=== PATIENT | male | born 1970 | race Caucasian/White ===

== ENCOUNTER → 2017-06-20 | Outpatient (CLI) | payer BC | END | disposition home or self-care (01) | LOC: LAB 10:05 → LAB SHORT 10:05 | PROVIDERS: Internal Medicine Nephrology | DX: N18.2 Chronic kidney disease, stage 2 (mild) (principal); D63.1 Anemia in chronic kidney disease; N25.81 Secondary hyperparathyroidism of renal origin; E55.0 Rickets, active; E78.00 Pure hypercholesterolemia, unspecified; R94.8 Abnormal results of function studies of other organs and systems; R76.9 Abnormal immunological finding in serum, unspecified | CPT/HCPCS: 81050; 82043; 84156 ==

== ENCOUNTER 2017-07-09 20:49 | Emergency (ER) | payer BC ==
[~2017-07-09] VITALS: Ht 182.9 cm; Wt 101.6 kg
== END 2017-07-09 21:43 | disposition home or self-care (01) ==
LOC: ER 20:49
DX: R21 Rash and other nonspecific skin eruption (principal)
CPT/HCPCS: 99282

== ENCOUNTER 2020-10-14 17:14 | Emergency (ER) | payer OTHER, BC ==
[~2020-10-14] VITALS: Ht 182.9 cm; Wt 97.5 kg
[2020-10-14] MEDS ORDERED: Bactrim Ds Tab1 EACH PO (19:13)
== END 2020-10-14 19:32 | disposition home or self-care (01) ==
LOC: ER 17:14
DX: S61.412A Laceration without foreign body of left hand, initial encounter (principal); Z23 Encounter for immunization; W45.8XXA Other foreign body or object entering through skin, initial encounter
CPT/HCPCS: 12002; 73140; 90471; 90714; 99282-25; A9270

== ENCOUNTER 2020-10-22 18:06 | Emergency (ER) | payer BC ==
[~2020-10-22] VITALS: Ht 182.9 cm; Wt 98.0 kg
[~2020-10-22 18:06] MED LIST: Bactrim Ds Tab1 EACH PO
== END 2020-10-22 19:34 | disposition home or self-care (01) ==
LOC: ER 18:06
DX: S61.012D Laceration without foreign body of left thumb without damage to nail, subsequent encounter (principal); Z88.0 Allergy status to penicillin; W45.8XXD Other foreign body or object entering through skin, subsequent encounter

== ENCOUNTER → 2023-12-15 | Outpatient (CLI) | payer BC ==
[~2023-12-15] MED LIST changes: +CLON.2 PO; +OLME20 PO; +ONDA4ODT MM; +PROM12.5S PR; +PROMETHAZINE12.5 M1 PO
[2023-12-15 10:09] LABS: Creatinine Urine 81.2 mg/dL (27.00-270.00); Protein, Urine Quantitative 68.4 mg/dL (0.0-11.9)
== END | disposition home or self-care (01) ==
LOC: LAB SHORT 05:43 → LAB 05:43 → LAB FUT 12-12 06:35
PROVIDERS: Internal Medicine Nephrology
DX: E11.22 Type 2 diabetes mellitus with diabetic chronic kidney disease (principal); N18.30 Chronic kidney disease, stage 3 unspecified; D63.1 Anemia in chronic kidney disease; E11.21 Type 2 diabetes mellitus with diabetic nephropathy; N25.81 Secondary hyperparathyroidism of renal origin; E55.9 Vitamin D deficiency, unspecified; R76.9 Abnormal immunological finding in serum, unspecified; R94.5 Abnormal results of liver function studies; R94.6 Abnormal results of thyroid function studies
CPT/HCPCS: 81050; 82043; 82570; 84156